=== PATIENT | female | born 1980 | race Two or more races ===

== ENCOUNTER 2019-04-24 21:53 | Emergency (ER) | payer SELFPAY ==
[~2019-04-24] VITALS: Ht 142.2 cm; Wt 59.0 kg
[2019-04-24 21:55] VITALS: BP 145/67
--- NOTE | 2019-04-24 22:17 | NUR ---
ED Nurse Note: Patient in room 3 two daughters present lives with 2 daughters ages 21 and 13. A&O 4 but reluctant to talk. IV access insitu labs drawn and EKG placed on monitor and in gown.
--- NOTE | 2019-04-24 22:30 | Emergency Room Report ---
History of Present Illness General Chief Complaint: Overdose Source: Patient, Family Member Present Illness HPI This a 39-year-old female with no past medical history. She was brought in by EMS with chief complaint of overdose. According to her daughter, she is under a lot of stress relationship kramer. She is been fighting with her . She took 14 tablets of DayQuil about 4 and half hours ago. Patient denies suicidal thoughts homicidal thought. She was sleepy and was making sense of daughter called 911. Patient said that she took a try to go to sleep. She denies suicidal thoughts homicidal thought. Denies any other complaint. Daughter think it was approximately 14 tablets based on the left over packet. Tablet contained 325 mg of acetaminophen, 10 mg of dextromethorphan, and 15 mg of phenylephrine. Allergies: Coded Allergies: No Known Allergies (Unverified , 04/24/19) Patient History Past Medical History: see triage record, old chart reviewed Past Surgical History: none Pertinent Family History: none Social History: Denies: smoking Last Menstrual Period: sna Now: No : 3 Para: 3 Immunizations: other Reviewed Nursing Documentation: PMH: Agreed; PSxH: Agreed Nursing Documentation-PMH Past Medical History: No Stated History Review of Systems Eye: Denies: eye pain, blurred vision ENT: Denies: ear pain, nose congestion, throat swelling Respiratory: Denies: cough, shortness of breath Cardiovascular: Denies: chest pain, palpitations Gastrointestinal: Denies: abdominal pain, diarrhea, nausea, vomiting Musculoskeletal: Denies: back pain, joint pain Skin: Denies: rash Neurological: Denies: headache, numbness Endocrine: Denies: increased thirst, increased urine Hematologic/Lymphatic: Denies: easy bruising All Other Systems: negative except mentioned in HPI Physical Exam Vital Signs Date Time Temp Pulse Resp B/P (MAP) Pulse Ox O2 Delivery O2 Flow Rate FiO2 04/24/19 21:53 98.2 68 16 136/82 (100) 100 Vitals normal Sp02 EP Interpretation: reviewed, normal General Appearance: well appearing, no apparent distress, alert Head: normocephalic, atraumatic Eyes: bilateral eye PERRL, bilateral eye EOMI ENT: hearing grossly normal, normal pharynx Neck: full range of motion, supple, no meningismus Respiratory: chest non-tender, lungs clear, normal breath sounds Cardiovascular #1: regular rate, rhythm, no murmur Gastrointestinal: normal bowel sounds, non tender, no mass, no organomegaly, no bruit, non-distended Musculoskeletal: back normal, gait/station normal, normal range of motion Psychiatric: depressed affect, anxious, other - crying Medical Decision Making Diagnostic Impression: Primary Impression: Drug overdose Qualified Codes: T50.901A - Poisoning by unspecified drugs, medicaments and biological substances, accidental (unintentional), initial encounter Additional Impression: Interpersonal problem, not elsewhere classified ER Course Patient presents with overdose and sleepiness. Heart rate is only in the 60s and 70s. Start her weight and amount of possible Tylenol, it is not toxic dose. Labs and Tylenol levels will be checked. Drug screen checked. Patient presents with overdose on cough cold medicine. She denies suicidal thoughts or homicidal thought. Tylenol level is not toxic. See no criteria for 5150 at this moment in time. Will discharge home. Last Vital Signs Date Time Temp Pulse Resp B/P (MAP) Pulse Ox O2 Delivery O2 Flow Rate FiO2 04/24/19 21:53 98.2 68 16 136/82 (100) 100 Status: improved Disposition: HOME, SELF-CARE Condition: Stable Scripts Lorazepam* (ATIVAN*) 1 Mg Tablet 1 MG ORAL BEDTIME, #10 TAB Prov: Yoni Saunders MD 04/25/19 Additional Instructions: Take medication as directed. Do not take too much. Follow-up with your doctor in 7 days. Return if symptoms worsen. Yoni Saunders MD Apr 24, 2019 22:29
[2019-04-24 22:56] LABS: HEMOGLOBIN 13.2 G/DL (12.0-16.0); MEAN CORPUSCULAR VOLUME 86 FL (80-99); PLATELET COUNT 251 K/UL (150-450); RED BLOOD COUNT 4.63 M/UL (4.20-5.40); RED CELL DISTRIBUTION WIDTH 14.5 % (11.6-14.8); WHITE BLOOD COUNT 10.1 K/UL (4.8-10.8)
[2019-04-24 23:04] LABS: ANION GAP 14 mmol/L (5-15); BLOOD UREA NITROGEN 10 mg/dL (7-18); CALCIUM 9.2 MG/DL (8.5-10.1); CARBON DIOXIDE 23 MMOL/L (21-32); CHLORIDE 103 MMOL/L (98-107); CREATININE 0.7 MG/DL (0.55-1.30); POTASSIUM 3.3 MMOL/L (3.5-5.1); SODIUM 140 MMOL/L (136-145)
[2019-04-24 23:10] LABS: ALANINE AMINOTRANSFERASE 27 U/L (12-78); ALBUMIN 4.2 G/DL (3.4-5.0); ALBUMIN/GLOBULIN RATIO 1.2 (1.0-2.7); ALKALINE PHOSPHATASE 75 U/L (46-116); ASPARTATE AMINO TRANSFERASE 21 U/L (15-37); BILIRUBIN,TOTAL 0.5 MG/DL (0.2-1.0)
--- NOTE | 2019-04-24 23:20 | NUR ---
ED Nurse Note: Patient assisted to use commde. Patient reorts being on her menstrual eriod at present. Change of sanitary pad provided. Urine sample obtained. Patieny intermitently tearful but guarded
[2019-04-24 23:35] LABS: APPEARANCE,URINE CLEAR; BILIRUBIN, URINE NEGATIVE (NEGATIVE); GLUCOSE, URINE (UA) NEGATIVE (NEGATIVE); KETONES,URINE 4+ (NEGATIVE); LEUKOCYTE ESTERASE ,URINE NEGATIVE (NEGATIVE); NITRITE,URINE NEGATIVE (NEGATIVE); PH,URINE 5 (4.5-8.0); PROTEIN,URINE 1+ (NEGATIVE); UROBILINOGEN,URINE NORMAL MG/DL (0.0-1.0)
[2019-04-24 23:43] LABS: COLOR,URINE YELLOW
--- NOTE | 2019-04-24 23:59 | NUR ---
ED Nurse Note: Repeat tyenol level sent to the lab
[2019-04-25 00:12] VITALS: BP 118/76
[2019-04-25] MEDS ORDERED: ATIVAN1 MG ORAL (00:20)
--- NOTE | 2019-04-25 00:22 | NUR ---
ER DISCHARGE NOTE: Patient is cleared to be discharged per ERMD, pt is aox4, on room air, with stable vital signs. pt was given dc and prescription instructions, pt was able to verbalize understanding, pt id band and iv site removed without complications. pt is able to ambulate with steady gait. pt took all belongings. Patient accompanied home by 2 daughters.
[2019-04-25 00:27] VITALS: BP 118/76
== END 2019-04-25 00:27 | disposition home or self-care (01) ==
LOC: EDBD 21:53 → EMR 22:09
DX: T50.901A Poisoning by unspecified drugs, medicaments and biological substances, accidental (unintentional), initial encounter (principal); Y92.9 Unspecified place or not applicable
CPT/HCPCS: 36415; 80053; 80307; 81003; 81025; 85007; 85025; 96360; 99284; G0480; 80329